=== PATIENT | female | born 1950 | race Caucasian/White ===

== ENCOUNTER 2017-08-27 20:17 | Emergency (ER) | payer MEDICARE ==
[~2017-08-27] VITALS: Ht 160 cm; Wt 87.0 kg
[~2017-08-27 20:17] MED LIST: CEPHALEXIN500 M1 PO; KLONOPIN2 MG PO; LEVAQUIN750 MG PO; LEVOTHROID50 MCG PO; METFORMIN500 MG PO; NORCO1 TA1 PO; PAROXETINE40 MG PO; ROBITUSSIN AC10 ML OR; ULTRAM50 M1 PO; VITAMIN D50000 UN1 OR; XANAX0.5 MG PO; XOLAIR150 MG SC; ZOFRAN4 MG/TAB PO
[2017-08-27] MEDS ORDERED: LOTENSIN HCT1 TA1 PO (21:06)
[2017-08-27] MEDS ORDERED: LEVOTHYROXIN150 MCG PO (21:08)
[2017-08-27] MEDS ORDERED: FLEXERIL PO (21:09)
[2017-08-27] MEDS ORDERED: ATORVASTATIN CA20 MG PO (21:09)
[2017-08-27] MEDS ORDERED: MEDDOSEPAK PO (21:48)
[2017-08-27 22:04] VITALS: BP 126/97
== END 2017-08-27 22:00 | disposition home or self-care (01) ==
LOC: ED 20:17
DX: M75.51 Bursitis of right shoulder (principal); E11.9 Type 2 diabetes mellitus without complications; E78.00 Pure hypercholesterolemia, unspecified; E07.9 Disorder of thyroid, unspecified

== ENCOUNTER 2018-07-02 15:23 | Emergency (ER) | payer MEDICARE ==
[~2018-07-02] VITALS: Ht 160 cm; Wt 81.0 kg
[~2018-07-02 15:23] MED LIST changes: +ATORVASTATIN CA20 MG PO; +FLEXERIL PO; +LEVOTHYROXIN150 MCG PO; +LOTENSIN HCT1 TA1 PO; +MEDDOSEPAK PO
[2018-07-02] MEDS ORDERED: BENAZEPRIL5 MG PO (15:37)
[2018-07-02] MEDS ORDERED: LIOTHYRONINE5 MCG PO (15:38)
[2018-07-02] MEDS ORDERED: METFORMIN500 MG PO (15:39)
[2018-07-02 16:19] LABS: HEMATOCRIT 40.2 % (37.0-47.0); HEMOGLOBIN 12.9 g/dl (12.0-16.0); IMMATURE GRANULOCYTES 1.8 % (0.0-5.0); MEAN CELL VOLUME 92.2 fL CALC (80.0-100.0); MEAN CORPUSCULAR HGB 29.6 pG CALC (26.0-32.0); MEAN CORPUSCULAR HGB CONC 32.1 g/L CALC (32.0-36.0); NEUT# 17.49 thou/uL (2.00-7.15); RED BLOOD COUNT 4.36 mill/uL (4.20-5.60); RED CELL DISTRI WIDTH 14.6 % (11.5-15.5)
[2018-07-02 16:29] LABS: INFLUENZA A NONE DETECTED (NONE DETECT); INFLUENZA B NONE DETECTED (NONE DETECT)
[2018-07-02 16:37] LABS: ALBUMIN 3.8 g/dL (3.2-5.0); ALKALINE PHOSPHATASE 81 u/l (38-126); ANION GAP 17 (6-22 (CALC)); BILIRUBIN, TOTAL 1.3 mg/dL (0.0-1.4); BUN 15 mg/dL (8-23); BUN/CREATININE RATIO 17 (12-20 (CALC)); CARBON DIOXIDE 25 mmol/l (22-30); CHLORIDE 100 mmol/l (95-108); CREATININE 0.9 mg/dL (0.5-1.0); GFR > 60 ML/MIN (>=60 (CALC)); GFR FOR AFR.AMER. > 60 ML/MIN (>=60 (CALC)); MAGNESIUM 1.8 mg/dL (1.6-2.3); POTASSIUM 4.1 mmol/l (3.5-5.1); SGOT/AST 23 u/l (9-36); SODIUM 138 mmol/l (137-146); TOTAL PROTEIN 6.7 g/dL (6.3-8.2)
[2018-07-02] MEDS ORDERED: XOPENEX HF45 MCG/ACT IN (17:00)
[2018-07-02] MEDS ORDERED: DOXYCYCL HYC100 MG PO (17:00)
[2018-07-02] MEDS ORDERED: PREDNISONE10 MG PO (17:00)
[2018-07-02 18:20] VITALS: BP 120/60
== END 2018-07-02 18:40 | disposition home or self-care (01) ==
LOC: ED 15:23
PROVIDERS: Family Medicine
DX: J18.9 Pneumonia, unspecified organism (principal); J45.901 Unspecified asthma with (acute) exacerbation; R50.9 Fever, unspecified; R05 Cough; R51 Headache; R09.81 Nasal congestion; I10 Essential (primary) hypertension

== ENCOUNTER 2021-07-21 17:23 | Emergency (ER) | payer MEDICARE ==
[~2021-07-21] VITALS: Ht 160 cm; Wt 80.0 kg
[~2021-07-21 17:23] MED LIST changes: +BENAZEPRIL5 MG PO; +DOXYCYCL HYC100 MG PO; +LIOTHYRONINE5 MCG PO; +PREDNISONE10 MG PO; +XOPENEX HF45 MCG/ACT IN
[2021-07-21 18:55] LABS: URINE BLOOD DIPSTICK NEGATIVE (NEGATIVE); URINE COLOR YELLOW; URINE GLUCOSE - DIPSTICK NEGATIVE (NEGATIVE); URINE KETONE 15 mg/dL (NEGATIVE); URINE PH 8.5 (4.5-8.0); URINE PROTEIN - DIPSTICK NEGATIVE (NEG-TRACE)
[2021-07-21 18:56] LABS: HEMATOCRIT 43.7 % (37.0-47.0); HEMOGLOBIN 14.3 g/dl (12.0-16.0); IMMATURE GRANULOCYTES 0.2 % (0.0-5.0); MEAN CELL VOLUME 89.9 fL CALC (80.0-100.0); MEAN CORPUSCULAR HGB 29.4 pG CALC (26.0-32.0); MEAN CORPUSCULAR HGB CONC 32.7 g/dL CAL (32.0-36.0); NEUT# 8.76 thou/uL (2.00-7.15); RED BLOOD COUNT 4.86 mill/uL (4.20-5.60); RED CELL DISTRI WIDTH 13.7 % (11.5-15.5)
[2021-07-21 18:57] LABS: URINE BILIRUBIN - DIPSTICK NEGATIVE (NEGATIVE); URINE LEUK ESTERASE MODERATE (NEGATIVE); URINE NITRITE - DIPSTICK NEGATIVE (Negative)
[2021-07-21 19:16] LABS: URINE BACTERIA FEW hpf; URINE SQUAMOUS EPITHELIAL CELL MANY EPI/hpf (0-FEW)
[2021-07-21 19:29] LABS: ACT PARTIAL THROMBO TIME 23.2 SECONDS (20.0-32.5); INTERNATIONAL NORMALIZED RATIO 0.9 RATIO (0.7-1.3); PROTHROMBIN TIME 9.9 SECONDS (9.0-12.5)
[2021-07-21 20:03] LABS: ALBUMIN 4.1 g/dL (3.2-5.0); ALKALINE PHOSPHATASE 96 u/l (38-126); AMYLASE 56 u/l (30-110); ANION GAP 13 (6-22 (CALC)); BUN 13 mg/dL (8-23); BUN/CREATININE RATIO 15 (12-20 (CALC)); CARBON DIOXIDE 27 mmol/l (22-30); CHLORIDE 105 mmol/l (95-108); CREATININE 0.9 mg/dL (0.5-1.0); GFR > 60 ML/MIN (>=60 (CALC)); GFR FOR AFR.AMER. > 60 ML/MIN (>=60 (CALC)); LIPASE 79 u/l (23-300); POTASSIUM 3.4 mmol/l (3.5-5.1); SGOT/AST 25 u/l (9-36); SODIUM 142 mmol/l (137-146); TOTAL PROTEIN 6.9 g/dL (6.3-8.2)
[2021-07-21] MEDS ORDERED: PHENERGAN25 MG RE (21:25)
[2021-07-21] MEDS ORDERED: IMODIUM2 MG PO (21:25)
[2021-07-21 21:29] VITALS: BP 138/76
== END 2021-07-21 21:40 | disposition home or self-care (01) ==
LOC: ED 17:23
DX: R10.11 Right upper quadrant pain (principal); R19.7 Diarrhea, unspecified; R11.2 Nausea with vomiting, unspecified; E11.9 Type 2 diabetes mellitus without complications; I10 Essential (primary) hypertension; J45.909 Unspecified asthma, uncomplicated; E78.00 Pure hypercholesterolemia, unspecified; Z79.84 Long term (current) use of oral hypoglycemic drugs; Z20.822 Contact with and (suspected) exposure to COVID-19
CPT/HCPCS: Q9967

== ENCOUNTER 2023-06-08 18:19 | Emergency (ER) | payer MEDICARE ==
[~2023-06-08] VITALS: Ht 160 cm; Wt 91.9 kg
[~2023-06-08 18:19] MED LIST changes: +IMODIUM2 MG PO; +PHENERGAN25 MG RE
[2023-06-08 19:00] VITALS: BP 139/75
[2023-06-08 19:05] LABS: BASO% 0.8 % (0-3); EOS% 2.9 % (0-8); IMMATURE GRANULOCYTES 0.5 % (0.0-5.0); LYMPH% 40.1 % (15-41); MEAN CORPUSCULAR HGB 29.1 pG CALC (26.0-32.0); MEAN CORPUSCULAR HGB CONC 31.6 g/dL CAL (32.0-36.0); MONO% 6.5 % (2-13); NEUT# 3.01 thou/uL (2.00-7.15); NEUT% 49.2 % (42-76); RED BLOOD COUNT 4.13 mill/uL (4.20-5.60); RED CELL DISTRI WIDTH 13.8 % (11.5-15.5)
[2023-06-08 19:13] LABS: ALBUMIN 3.6 g/dL (3.2-5.0); ALKALINE PHOSPHATASE 79 u/l (38-126); ANION GAP 10 (6-22 (CALC)); BILIRUBIN, TOTAL 0.7 mg/dL (0.02-1.3); BUN 16 mg/dL (8-23); BUN/CREATININE RATIO 18 (12-20 (CALC)); CARBON DIOXIDE 24 mmol/l (22-30); CHLORIDE 105 mmol/l (95-108); CREATININE 0.9 mg/dL (0.5-1.0); GFR FOR AFR.AMER. > 60 ML/MIN (>=60 (CALC)); GFR OTHER RACES > 60 ML/MIN (>=60 (CALC)); SGOT/AST 33 u/l (9-36); SODIUM 135 mmol/l (137-146); TOTAL PROTEIN 6.4 g/dL (6.3-8.2)
[2023-06-08 19:14] LABS: POTASSIUM 4.1 mmol/l (3.5-5.1)
[2023-06-08 19:35] VITALS: BP 124/68
[2023-06-08 21:38] VITALS: BP 124/68
== END 2023-06-08 22:13 | disposition home or self-care (01) ==
LOC: ED 18:19
PROVIDERS: Nurse Practitioner Family
DX: S20.221A Contusion of right back wall of thorax, initial encounter (principal); I95.1 Orthostatic hypotension; I10 Essential (primary) hypertension; E11.9 Type 2 diabetes mellitus without complications; E78.00 Pure hypercholesterolemia, unspecified; J45.909 Unspecified asthma, uncomplicated; W18.2XXA Fall in (into) shower or empty bathtub, initial encounter
CPT/HCPCS: Q9967